=== PATIENT | male | born 2005 | race Hispanic/Latino ===

== ENCOUNTER 2024-11-06 15:29 | Emergency (ER) | payer OTHER, SELFPAY ==
[2024-11-06 16:41] LABS: SARS-CoV-2 Antigen CONTROL BLUE LINE VIS/BG OK; SARS-CoV-2 Antigen Rapid Res Negative (Negative)
[2024-11-06] MEDS ORDERED: KETOROLAC 30 MG/ML INJ ONE (18:00)
[2024-11-06] MEDS ORDERED: ONDANSETRON 4 MG/2 ML VIAL ONE (18:00)
[2024-11-06] MEDS ORDERED: LIDOCAINE VISCOUS 2% 10ML ORAL SOLN ONE (18:01)
[2024-11-06] MEDS ORDERED: NA CHLORIDE 0.9% 1,000 ML ONE (18:01)
[2024-11-06 18:11] LABS: Absolute Basophils 0.1 K/uL (0-0.5); Absolute Lymphocytes (CBC) 1.3 K/uL (0.7-4.9); Absolute Monocytes 1.4 K/uL (0.1-1.3); Absolute Neutrophil 9.7 K/uL (1.8-8.0); Basophils % 0.5 % (0-1.3); Eosinophils % 0.1 % (0-4.4); Hematocrit 44.4 % (39.6-49.0); Hemoglobin 14.7 g/dL (13.6-17.9); Lymphocytes % 10.1 % (15.3-44.8); MCH 28.9 pg (27.0-35.0); MCHC 33.2 g/dL (32.0-36.0); MCV 87.2 fL (80-100); MPV 8.5 fL (7.6-11.3); Monocytes % 11.2 % (3.3-12.3); Neutrophils % 78.1 % (41.7-73.7); Platelets 272 thou/uL (152-406); RBC Red Blood Cell Count 5.09 M/uL (4.33-5.43); Red Cell Distribution Width 13.2 % (12.1-15.2)
[2024-11-06 18:20] LABS: Anion Gap 8.7 mEq/L (5.0-15.0); Potassium 3.7 mEq/L (3.5-5.1)
--- NOTE | 2024-11-06 19:20 | RAD REPORT ---
EXAM: Soft Tissue Neck W/Contr INDICATION: SORE THROAT TECHNIQUE: Helical CT examination of the neck with IV contrast. Sagittal and coronal reformations wer e generated. This exam was performed according to our departmental dose-optimization program, which includes automated exposure control, adjustment of the mA and/or kV according to patient size and/or use of iterative reconstruction technique. COMPARISON: None. FINDINGS: Aerodigestive Tract Structures: Fluid attenuation at the left palatine tonsil and left parapharyngeal space without well-defined enhancing rim. There is minimal narrowing of the left posterior oropharynx. Lymph Nodes: Reactive size cervical chain lymph nodes. Parotid Glands: Normal Submandibular Glands: Normal Thyroid Gland: Subcentimeter thyroid nodules. Included Intracranial Structures: Normal Included Orbits: Normal Paranasal Sinuses: Predominantly clear Tympanomastoid Cavities: Normal Vascular Structures: Normal Osseous Structures: No acute osseous abnormality. Included Lung Apices: Normal IMPRESSION: Fluid attenuation in the region of the left palatine tonsil and left parapharyngeal space likely repr esenting phlegmon at this point without enhancing rim to confirm the presence of a peritonsillar abscess. Grossly patent airway.
[2024-11-06] MEDS ORDERED: CLINDAMYCIN 900MG/D5W 900 MG/50 ML IVPB IV ONE (19:46)
[2024-11-06] MEDS ORDERED: dexAMETHasone 10 MG/ML VIAL ONE (19:46)
--- NOTE | 2024-11-06 20:18 | ER ---
Nurse's Notes [facility] Name: Matias Chavez Age: 19 yrs Sex: Male : 2005 Arrival Date: 11/06/2024 Time: 15:29 Bed 13 Private MD: Diagnosis: Acute tonsillitis, unspecified Presentation: 11/06 15:50 Chief complaint: Sore throat and pain with swallowing x 2 days. Coronavirus screen: At this time, the client does not indicate any symptoms associated with coronavirus-19. Ebola Screen: No symptoms or risks identified at this time. Initial Sepsis Screen: Does the patient meet any 2 criteria? No. Patient's initial sepsis screen is negative. Does the patient have a suspected source of infection? No. Patient's initial sepsis screen is negative. Risk Assessment: Do you want to hurt yourself or someone else? Patient reports no desire to harm self or others. Onset of symptoms was November 05, 2024. 15:50 Method Of Arrival: Ambulatory hb 15:50 Acuity: ELIZABETH 3 hb Historical: - Allergies: 15:51 No Known Allergies; hb - Home Meds: 15:52 None [Active]; hb - PMHx: 15:52 None; hb - PSHx: 15:52 Appendectomy; hb - Immunization history:: Adult Immunizations up to date. - Infectious Disease History:: Denies. - Social history:: Smoking status: Patient denies any tobacco usage or history of. Screenin:16 [facility] ED Fall Risk Assessment (Adult) History of falling in the last 3 months, tm6 including since admission No falls in past 3 months (0 pts) Confusion or Disorientation No (0 pts) Intoxicated or Sedated No (0 pts) Impaired Gait No (0 pts) Mobility Assist Device Used No (0 pt) Altered Elimination No (0 pt) Score/Fall Risk Level 0 - 2 = Low Risk Oriented to surroundings, Maintained a safe environment, Educated pt \T\ family on fall prevention, incl call for assistance when getting out of bed. Abuse screen: Denies threats or abuse. Denies injuries from another. Nutritional screening: No deficits noted. Tuberculosis screening: No symptoms or risk factors identified. Assessment: 18:12 General: Appears in no apparent distress. Behavior is calm, cooperative. Pain: tm6 Complains of pain in throat Pain currently is 7 out of 10 on a pain scale. Neuro: Level of Consciousness is awake, alert, obeys commands, Oriented to person, place, time, situation. Cardiovascular: Patient's skin is warm and dry. Respiratory: Airway is patent Respiratory effort is even, unlabored, Respiratory pattern is regular, symmetrical. GI: Abdomen is flat, non-distended, Reports nausea. : No signs and/or symptoms were reported regarding the genitourinary system. EENT: Throat is reddened Reports pain when swallowing. Derm: No signs and/or symptoms reported regarding the dermatologic system. Musculoskeletal: No signs and/or symptoms reported regarding the musculoskeletal system. 19:16 Reassessment: Patient and/or family updated on plan of care and expected duration. Pain rg5 level reassessed. Patient is alert, oriented x 3, equal unlabored respirations, skin warm/dry/pink. Patient states feeling better. Patient states symptoms have improved. Cardiovascular: Denies chest pain, Patient's skin is warm and dry. Respiratory: Airway is patent Respiratory effort is even, unlabored, Respiratory pattern is regular, symmetrical, Breath sounds are clear. GI: Abdomen is flat, non-distended. : No signs and/or symptoms were reported regarding the genitourinary system. EENT: Reports pain when swallowing. Derm: Skin is intact, Skin is dry, Skin is normal, Skin temperature is warm. Musculoskeletal: Circulation, motion, and sensation intact. Range of motion: intact in all extremities. Vital Signs: 15:52 BP 138 / 87; Pulse 85; Resp 16; Temp 98.6(O); Pulse Ox 100% on R/A; Weight 84.82 kg; hb Height 6 ft. 0 in. ; Pain 7/10; 18:12 BP 124 / 86; Pulse 64; Pulse Ox 100% on R/A; MAP 91 mmHg; Pain 7/10; tm6 19:12 BP 128 / 77; Pulse 66; Resp 17; Temp 98.2(O); Pulse Ox 99% on R/A; Pain 3/10; rg5 20:15 BP 119 / 76; Pulse 69; Resp 17; Temp 98(O); Pulse Ox 99% on R/A; Pain 0/10; rg5 15:52 Body Mass Index 25.36 (84.82 kg, 182.88 cm) hb 15:52 Pain Scale: Adult hb 18:12 Pain Scale: Adult tm6 19:12 Pain Scale: Adult rg5 20:15 Pain Scale: Adult rg5 ED Course: 15:35 Patient arrived in ED. im 15:37 Magali Ryan PA-C is PHCP. sb4 15:37 To Kwong MD is Attending Physician. sb4 15:51 Triage completed. hb 15:53 Arm band placed on. hb 17:23 Dixon Arriola, RN is Primary Nurse. tm6 17:49 BMP Sent. cc6 17:49 CBC with Diff Sent. cc6 17:50 Initial lab(s) drawn, by me, sent to lab. Inserted saline lock: 20 gauge in right cc6 forearm, using aseptic technique. Blood collected. Flushed with 10 mL NS. 18:16 Patient has correct armband on for positive identification. Bed in low position. Call tm6 light in reach. Side rails up X 1. Provided Education on: use of call healy. Client placed on continuous cardiac and pulse oximetry monitoring. NIBP monitoring applied. Pulse ox on. NIBP on. Door closed. Noise minimized. Pillow given. 18:29 PHCP role handed off by Magali Ryan PA-C cp 18:29 To Martinez PA is PHCP. cp 19:06 Soft Tissue Neck W/Contr CT In Process Unspecified. EDMS 19:16 No provider procedures requiring assistance completed. rg5 20:17 Sandee Keith MD is Referral Physician. cp 20:32 IV discontinued, bleeding controlled, No redness/swelling at site. Pressure dressing rg5 applied. Administered Medications: 18:10 Drug: Ketorolac IVP 15 mg IVP once Route: IVP; Site: right antecubital; tm6 19:01 Follow up: Response: No adverse reaction tm6 18:10 Drug: Viscous Lidocaine Mucous Membrane Liquid (4 %) 5 ml Mucous Membrane once; swallow tm6 Route: Mucous Membrane; 19:01 Follow up: Response: No adverse reaction tm6 18:11 Drug: NS 0.9% IV 1000 ml IV at 1000 ml once; to be given as a bolus over 60 minutes tm6 Route: IV; Rate: 1000 ml; Site: right antecubital; 19:01 Follow up: Response: No adverse reaction; IV Status: Completed infusion; IV Intake: tm6 1000ml 18:11 Drug: Ondansetron IVP 4 mg IVP once; over 2 minutes Route: IVP; Site: right antecubital;tm6 19:01 Follow up: Response: No adverse reaction tm6 19:47 Drug: Dexamethasone IVP 10 mg IVP once; (not to exceed 40 mg) Route: IVP; Site: right rg5 antecubital; 20:15 Follow up: Response: No adverse reaction rg5 19:50 Drug: Clindamycin IVPB 900 mg IVPB once over 30 mins; (mix in 50 mL) Route: IVPB; rg5 Infused Over: 30 mins; Site: right antecubital; 20:20 Follow up: IV Status: Completed infusion; IV Intake: 50ml rg5 Medication: 19:16 VIS not applicable for this client. rg5 Intake: 19:01 IV: 1000ml; Total: 1000ml. tm6 20:20 IV: 50ml; Total: 1050ml. rg5 Outcome: 20:18 Discharge ordered by MD. cp 20:32 Discharged to home ambulatory, rg5 20:32 Condition: stable 20:32 Discharge instructions given to patient, Instructed on discharge instructions, follow up and referral plans. Demonstrated understanding of instructions, follow-up care, medications, Prescriptions given X 2, 20:32 Patient left the ED. rg5 Signatures: Dispatcher [employer] EDMS To Martinez PA PA cp Baxter, Heather, YENNY RAMON hb Magali Ryan PA-C PA-Fina sb4 Jessica Higuera Tawney, RN RN tm6 Sravan Serna RN RN rg5 Keesha Luna cc6 Corrections: (The following items were deleted from the chart) 15:52 15:50 Acuity: ELIZABETH 4 hb hb
--- NOTE | 2024-11-06 20:18 | EDPHYS ---
Physician Documentation [facility] Name: Matias Chavez Age: 19 yrs Sex: Male : 2005 Arrival Date: 11/06/2024 Time: 15:29 Bed 13 Private MD: ED Physician To Kwong HPI: 11/06 15:56 This 19 yrs old Male presents to ER via Ambulatory with complaints of Sore Throat. sb4 16:54 sore throat x 2 days, mainly on the left side. endorses pain with and difficulty sb4 swallowing. denies fever. reports 1 episode of emesis earlier today. reports prior episodes of tonsillitis and peritonsillar abscesses. Historical: - Allergies: 15:51 No Known Allergies; hb - Home Meds: 15:52 None [Active]; hb - PMHx: 15:52 None; hb - PSHx: 15:52 Appendectomy; hb - Immunization history:: Adult Immunizations up to date. - Infectious Disease History:: Denies. - Social history:: Smoking status: Patient denies any tobacco usage or history of. ROS: 16:54 Constitutional: Negative for fever, chills, and weight loss, sb4 16:54 ENT: Positive for sore throat, 16:54 All other systems are negative, Exam: 16:54 Head/Face: Normocephalic, atraumatic. Eyes: Extra-ocular motions intact. Periorbital sb4 areas with no swelling, redness, or edema. Cardiovascular: Regular rate and rhythm with a normal S1 and S2. Respiratory: No increased work of breathing, no retractions or nasal flaring. Abdomen/GI: Soft, non-tender, no distension. Skin: Warm, dry with normal turgor. Normal color with no rashes, no lesions, and no evidence of cellulitis. 16:54 Constitutional: The patient appears alert, awake, obviously ill, uncomfortable, 16:54 ENT: Posterior pharynx: Tonsils: bilaterally enlarged, with erythema, no exudate, no ulcerations, Uvula: edematous, erythema, deviates left, Vital Signs: 15:52 BP 138 / 87; Pulse 85; Resp 16; Temp 98.6(O); Pulse Ox 100% on R/A; Weight 84.82 kg; hb Height 6 ft. 0 in. ; Pain 7/10; 18:12 BP 124 / 86; Pulse 64; Pulse Ox 100% on R/A; MAP 91 mmHg; Pain 7/10; tm6 19:12 BP 128 / 77; Pulse 66; Resp 17; Temp 98.2(O); Pulse Ox 99% on R/A; Pain 3/10; rg5 20:15 BP 119 / 76; Pulse 69; Resp 17; Temp 98(O); Pulse Ox 99% on R/A; Pain 0/10; rg5 15:52 Body Mass Index 25.36 (84.82 kg, 182.88 cm) hb 15:52 Pain Scale: Adult hb 18:12 Pain Scale: Adult tm6 19:12 Pain Scale: Adult rg5 20:15 Pain Scale: Adult rg5 MDM: 15:48 Medical Screening Exam initiated sb4 16:56 Differential diagnosis: epiglottitis, group A strep tonsillitis, influenza, laryngitis, sb4 pharyngitis, tonsillitis, upper respiratory infection. Data reviewed: vital signs, nurses notes, lab test result(s), radiologic studies, and as a result, I will discharge patient. 17:47 Counseling: I had a detailed discussion with the patient and/or guardian regarding the sb4 historical points, exam findings, and any diagnostic results supporting the discharge/admit diagnosis, lab results, radiology results, the need for outpatient follow up, an ENT specialist, to return to the emergency department if symptoms worsen or persist or if there are any questions or concerns that arise at home. 11/06 15:53 Order name: CBC with Diff; Complete Time: 18:18 sb4 11/06 19:31 Interpretation: Reviewed. cp 11/06 15:53 Order name: BMP; Complete Time: 19:30 sb4 11/06 19:30 Interpretation: Reviewed. cp 11/06 15:53 Order name: Strep sb4 11/06 15:53 Order name: SARS RAPID; Complete Time: 16:42 sb4 11/06 15:53 Order name: Flu; Complete Time: 17:04 sb4 11/06 16:44 Order name: Throat Culture EDMS 11/06 15:53 Order name: Soft Tissue Neck W/Contr CT; Complete Time: 19:30 sb4 11/06 15:53 Order name: IV Start; Complete Time: 17:49 sb4 Administered Medications: 18:10 Drug: Ketorolac IVP 15 mg IVP once Route: IVP; Site: right antecubital; tm6 19:01 Follow up: Response: No adverse reaction tm6 18:10 Drug: Viscous Lidocaine Mucous Membrane Liquid (4 %) 5 ml Mucous Membrane once; swallow tm6 Route: Mucous Membrane; 19:01 Follow up: Response: No adverse reaction tm6 18:11 Drug: NS 0.9% IV 1000 ml IV at 1000 ml once; to be given as a bolus over 60 minutes tm6 Route: IV; Rate: 1000 ml; Site: right antecubital; 19:01 Follow up: Response: No adverse reaction; IV Status: Completed infusion; IV Intake: tm6 1000ml 18:11 Drug: Ondansetron IVP 4 mg IVP once; over 2 minutes Route: IVP; Site: right antecubital;tm6 19:01 Follow up: Response: No adverse reaction tm6 19:47 Drug: Dexamethasone IVP 10 mg IVP once; (not to exceed 40 mg) Route: IVP; Site: right rg5 antecubital; 20:15 Follow up: Response: No adverse reaction rg5 19:50 Drug: Clindamycin IVPB 900 mg IVPB once over 30 mins; (mix in 50 mL) Route: IVPB; rg5 Infused Over: 30 mins; Site: right antecubital; 20:20 Follow up: IV Status: Completed infusion; IV Intake: 50ml rg5 Disposition Summary: 11/06/24 20:18 Discharge Ordered Notes: Location: Home cp Problem: new cp Symptoms: have improved cp Condition: Stable cp Diagnosis - Acute tonsillitis, unspecified cp Followup: cp - With: Sandee Keith MD - When: 2 - 3 days - Reason: Worsening of condition Discharge Instructions: - Form - Excuse from Work, School, or Physical Activity sp - Form - Return To Work sp - Discharge Summary Sheet cp - Tonsillitis cp Forms: - Medication Reconciliation Form cp - Antibiotic Education cp - Prescription Opioid Use cp - Patient Portal Instructions cp - Leadership Thank You Letter cp - Work release form vc1 Prescriptions: - Lidocaine Viscous - take 5 milligram ORAL route every 4-6 hours As needed; 120 milliliter; Refills: cp 0, Product Selection Permitted - Clindamycin HCl 300 mg Oral Capsule - take 1 capsule ORAL route every 6 hours for 10 days; 40 capsule; Refills: 0, cp Product Selection Permitted - Ibuprofen 800 mg Oral Tablet - take 1 tablet ORAL route every 8 hours As needed take with food; 30 tablet; cp Refills: 0, Product Selection Permitted Addendum: 11/08/2024 14:58 Co-signature as Attending Physician, To Kwong MD I agree with the assessment and c cantu plan of care. Signatures: Dispatcher [employer] EDMS To Kwong MD MD cha Page, Corey, PA PA cp Baxter, Heather, RN RN Magali Sanchez PA-C PAJim sb4 Dixon Arriola RN RN tm6 Sravan Serna, RN RN rg5 Corrections: (The following items were deleted from the chart) 11/06 15:54 15:53 CBC+H.LAB.BRZ ordered. EDMS EDMS 15:54 15:53 BASIC METABOLIC PANEL+C.LAB.BRZ ordered. EDMS EDMS 15:54 15:53 Group A Streptococcus Rapid Sc+BA.LAB.BRZ ordered. EDMS EDMS 15:54 15:53 SARS-COV-2 Antigen Rapid+I.LAB.BRZ ordered. EDMS EDMS 15:54 15:53 Influenza Screen (A \T\ B)+BA.LAB.BRZ ordered. EDMS EDMS 15:54 15:54 Soft Tissue Neck W/Contr+CT.RAD.BRZ ordered. EDMS EDMS 16:55 16:54 sore throat x 2 days, mainly on the right side. endorses pain with and difficulty sb4 swallowing. denies fever. reports 1 episode of emesis earlier today. reports prior episodes of tonsillitis and peritonsillar abscesses. sb4
[2024-11-06 22:11] VITALS: O2SAT 99
[2024-11-06 22:13] VITALS: BP 119/76; TEMP 98
== END 2024-11-06 20:32 | disposition home or self-care (01) ==
LOC: ER 15:29
DX: J03.90 Acute tonsillitis, unspecified (principal); Z11.52 Encounter for screening for COVID-19
CPT/HCPCS: 96365; 96361; 87070; 85025; 80048; 36415; 87081; 87804 ×2; 70491; 96375; 99284; 87811; Q9967; J1100; J2405; J7030

== ENCOUNTER 2025-08-12 15:07 | Emergency (ER) | payer OTHER, SELFPAY ==
--- OUTSIDE RECORDS SUMMARY | 2025-08-12 15:12 | XMS REPORT | Continuity of Care Document ---
Author Name Unknown Address [address] [facility] [address] [place] [address] [facility] Address [address] [facility]. 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 Name Role Phone OTHER, ENTER NAME IN NOTES Primary Care Physicia n Unavailable Mely Lazar MD Attending Clinician Unavail able JJ BORJAS Attending Clinician Un available CHRISSY HERNANDEZ Attending Clinician Unavailab Rene Aden Attending Clinician Unavailable MARIN REED Attending Clinician Unavailable PRAVEEN POLK Attending Clinician Unavailable GAMA RODRÍGUEZ Attending Clinician Unavailab CARMELO Bazan Attending Clinician Unavailable JJ BORJAS Admitting Clinician Un available Physician, No Primary or Family Admitting Clinic bhargav Unavailable MARIN REED Admitting Clinician Unavailable PRAVEEN POLK Admitting Clinician Unavailable GAMA RODRÍGUEZ Admitting Clinician Unavailab le Payers Payer Name Policy Type Policy Number Effective Date Expirati on Date Source [id number] 1960 00:00:00 [facility] [id number] 2020 00:00:00 [facility] [id number] 2020 00:00:00 [facility] [id number] [facility] [id number] [facility] Problems Condition Name Condition Details Condition Category Status Onset Date Resolution Date Last Treatment Date Treating Clinician Comments Source Fracture of neck of metacarpal bone Fracture of neck of metacarpal bone Condition Active 8-24 00:00: [address] [facility] ([facility] V/SA) Sprain of ligament of thumb Sprain of ligament of thumb Problem Active 8-31 00:00: [address] [facility] (LUF/LI V/SA) Closed fracture of nasal bones Closed fracture of nasal bones Problem Active 3- 00:00: [address] [facility] (LUF/LI V/SA) Encounter for counseling Problem [facility] Pharyngiti s Problem [facility] Worries Problem [facility] Abdominal pain Problem [facility] [id number] Cough Problem [facility] [id number] Fever, unspecifie d Problem Active [facility] [id number] Headache, unspecifie d headache type Problem [facility] Child health medical examinatio n Encounter for routine child health examinatio n with abnormal findings Problem Active [facility] [id number] Obesity, unspecifie d Problem Active [facility] [id number] Other chronic pain Problem Active [facility] [id number] Aching headache Problem [facility] Vaccinatio n given Encounter for immunizati on Problem Active [facility] [id number] Seasonal allergic rhinitis, unspecifie d trigger Problem Active [facility] Attention deficit hyperactiv ity disorder ADHD (attention deficit hyperactiv ity disorder) Problem Active [facility] [id number] Contact dermatitis due to poison jorge Problem Active [facility] [id number] Attention deficit disorder (ADD) without hyperactiv ity Problem Active [facility] [id number] Mood disorder Problem Active [facility] 76293857 Body aches Problem Active [facility] Allergies, Adverse Reactions, Alerts Allergy Name Allergy Type Status Severity Reaction(s) Onset Date Inactive Date Treating Clinician Comments Source No Known Allergie s DA Active U 03-10 00:00: 00 [facility] Social History Social Habit Start Date Stop Date Quantity Comments Source Sex Assigned At [facility] History of Tobacco Use [facility] Smoking Status Start Date Stop Date Source Never Smoker [facility] Medications Ordered Medication Name Filled Medication Name Start Date Stop Date Current Medication? Ordering Clinician Indication Dosage Frequency Signature (SIG) Comments Components Source Dicyclomine Hcl (Dicyclomin e Hcl 20 Mg (Bentyl) *) 20 Mg TAB Dicyclomine Hcl (Dicyclomin e Hcl 20 Mg (Bentyl) *) 20 Mg TAB 05-27 13:26: 00 Yes [facility] Ketorolac Tromethamin e (Toradol 10 Mg*) 10 Mg TAB Ketorolac Tromethamin e (Toradol 10 Mg*) 10 Mg TAB 05-27 13:26: 00 Yes [facility] Fluticasone Propionate 50 MCG/ACT Fluticasone Propionate 50 MCG/ACT 01-25 00:00: 00 No 1{spray _in_eac h_nostr il} QD Fluticason e Propionate 50 MCG/ACT amoxicillin 500 mg capsule amoxicillin 500 mg capsule Yes 500mg 2xD [facility] (LUF/LI V/SA) No Known Medications No Known Medications No [facility] Prozac 20 MG Prozac 20 MG No 1{capsu le} QD Prozac 20 MG Vital Signs Vital Name Observation Time Observation Value Comments S ource Height 2024-06-07 18:00:00 182.252850 cm [facility] Weight 2024-06-07 18:00:00 89.905082 kg [facility] BMI (Body Mass Index) 2024-06-07 18:00:00 26.9 kg/m2 [facility] Height 2022-07-03 15:44:00 182.88 CM Weight 2022-07-03 15:44:00 114.3 KG Height 2022-06-12 21:38:00 182.88 CM Weight 2022-06-12 21:38:00 113.39 KG bmi 2021-11-01 15:00:00 33.11 kg/m2 [facility] 2021-11-01 15:00:00 98.4 [degF] [facility] 2021-03-14 14:30:00 71.5 [in_i] [facility] weight 2021-03-14 14:30:00 230 [lb_av] [facility] bmi 2021-03-14 14:30:00 31.63 kg/m2 [facility] 2021-01-25 16:30:00 71.5 [in_i] [facility] weight 2021-01-25 16:30:00 238 [lb_av] [facility] 2021-01-25 16:30:00 32.73 kg/m2 [facility] temperature 2021-01-25 16:30:00 97.6 [degF] [facility] 2020-07-10 21:16:00 180.34 CM Weight 2020-07-10 21:16:00 99.33 KG Height 2019-07-03 00:37:00 177.8 CM Weight 2019-07-03 00:37:00 83 KG Body Temperature 2022-07-03 17:20:00 98.3 [degF] [facility] (LUF/SIGIFREDO/SA) Pulse Rate 2022-07-03 17:20:00 74 /min [facility] ([facility]/SIGIFREDO/SA) Respiratory Rate 2022-07-03 17:20:00 17 /min [facility] (LUF/SIGIFREDO/SA) O2% BldC Oximetry 2022-07-03 17:20:00 99 % [facility] (LUF/SIGIFREDO/SA) BP Systolic 2022-07-03 17:20:00 128 mm[Hg] [facility] (LUF/SIGIFREDO/SA) BP Diastolic 2022-07-03 17:20:00 71 mm[Hg] [facility] (LUF/SIGIFREDO/SA) Height 2022-07-03 15:44:00 72 [in_i] [facility] (LUF/SIGIFREDO/SA) Weight 2022-07-03 15:44:00 114.3 kg [facility] (LUF/SIGIFREDO/SA) BMI (Body Mass Index) 2022-07-03 15:44:00 34.5 kg/m2 [facility] (LUF/SIGIFREDO/SA) Body Temperature 2022-06-12 21:38:00 98.4 [degF] [facility] (LUF/SIGIFREDO/SA) Pulse Rate 2022-06-12 21:38:00 89 /min [facility] (LUF/SIGIFREDO/SA) Respiratory Rate 2022-06-12 21:38:00 19 /min [facility] (LUF/SIGIFREDO/SA) O2% BldC Oximetry 2022-06-12 21:38:00 99 % [facility] (LUF/SIGIFREDO/SA) BP Systolic 2022-06-12 21:38:00 137 mm[Hg] [facility] (LUF/SIGIFREDO/SA) BP Diastolic 2022-06-12 21:38:00 88 mm[Hg] [facility] (LUF/SIGIFREDO/SA) Height 2022-06-12 21:38:00 72 [in_i] [facility] (LUF/SIGIFREDO/SA) Weight 2022-06-12 21:38:00 250 [lb_av] [facility] (LUF/SIGIFREDO/SA) BMI (Body Mass Index) 2022-06-12 21:38:00 34.2 kg/m2 [facility] (LUF/SIGIFREDO/SA) Pulse Rate 2020-07-10 23:31:00 86 /min [facility] S [facility] (LUF/SIGIFREDO/SA) O2% BldC Oximetry 2020-07-10 23:31:00 99 % [facility] (LUF/SIGIFREDO/SA) BP Systolic 2020-07-10 23:31:00 128 mm[Hg] [facility] (LUF/SIGIFREDO/SA) BP Diastolic 2020-07-10 23:31:00 66 mm[Hg] [facility] (LUF/SIGIFREDO/SA) Body Temperature 2020-07-10 21:16:00 98.2 [degF] [facility] (LUF/SIGIFREDO/SA) Respiratory Rate 2020-07-10 21:16:00 20 /min [facility] (LUF/SIGIFREDO/SA) Height 2020-07-10 21:16:00 71 [in_i] [facility] Brennan [facility] (LUF/SIGIFREDO/SA) Weight 2020-07-10 21:16:00 219 [lb_av] [facility] (LUF/SIGIFREDO/SA) BMI (Body Mass Index) 2020-07-10 21:16:00 30.6 kg/m2 [facility] (LUF/SIGIFREDO/SA) Body Temperature 2017-11-14 23:51:00 99.6 F [facility] (LUF/SIGIFREDO/SA) Respiratory Rate 2017-11-14 23:51:00 20 /min [facility] (LUF/SIGIFREDO/SA) O2% BldC Oximetry 2017-11-14 23:51:00 100 % [facility] (LUF/SIGIFREDO/SA) BP Systolic 2017-11-14 23:51:00 150 mm[Hg] [facility] (LUF/SIGIFREDO/SA) BP Diastolic 2017-11-14 23:51:00 87 mm[Hg] [facility] (LUF/SIGIFREDO/SA) Height 2017-11-14 23:51:00 70 in [facility] Brennan [facility] (LUF/SIGIFREDO/SA) Weight Measured 2017-11-14 23:51:00 198.41 lbs [facility] (LUF/SIGIFREDO/SA) BMI (Body Mass Index) 2017-11-14 23:51:00 28.7 [facility] (LUF/SIGIFREDO/SA) Encounters Start Date/Time End Date/Time Encounter Type Admission Type Attending [facility] Care Facility Care Department Encounter ID Source 2021-12-12 10:51:47 Outpatient LIVST LIVST [id number] [facility] 2021-12-05 14:09:10 Outpatient Mely Lazar MD [facility] [id number] [facility] 2021-12-05 13:02:33 Outpatient Mely Lazar MD [facility] [id number] [facility] 2021-12-05 12:53:44 Outpatient Mely Lazar MD [facility] [id number] [facility] 2021-12-05 12:42:31 Outpatient Mely Lazar MD [facility] [id number] [facility] 2021-12-05 12:41:57 Outpatient Mely Lazar MD [facility] [id number] [facility] 2024-06-07 21:03:00 2024-06-08 08:09:00 Emergency E JJ BORJAS [facility] [id number] [address] [place] [address] 2024-06-07 16:48:00 2024-06-08 01:15:00 Emergency ER CHRISSY HERNANDEZ [facility] [id number] [facility] 2024-06-07 16:48:00 2024-06-08 01:15:00 Departed Emergency Room [facility] [id number] 68 [facility] 2024-05-27 12:23:00 2024-05-27 13:32:00 Emergency ER CHRISSY HERNANDEZ [facility] [id number] [facility] 2024-05-27 12:23:00 2024-05-27 13:32:00 Departed Emergency Room [facility] [id number] 2023-03-10 11:47:00 2023-03-10 15:45:00 Emergency EM Rene Salazar [facility] [id number] [facility] 2022-07-03 15:33:00 2022-07-03 17:49:00 [facility] FX SHFT 5TH MC BN RH INT [place] 1 MRAIN REED [facility] N, [address], [place] [address] [facility] [id number] [facility] (LUF/LI V/SA) 2022-07-03 00:00:00 2022-07-03 00:00:00 Inpatient [facility], [address], [place] [address] [facility] [id number] [facility] (LUF/LI V/SA) 2022-07-03 00:00:00 2022-07-03 00:00:00 Inpatient [facility] N, [address], [place] [address] [facility] [id number] [facility] (LUF/LI V/SA) 2022-06-12 21:29:00 2022-06-12 21:59:00 ACUTE PHARYNGITI S UNSPECIFIE D 1 PRAVEEN POLK [facility] N, [address], [place] [address] [facility] [id number] [facility] (LUF/LI V/SA) 2022-06-12 00:00:00 2022-06-12 00:00:00 Inpatient [facility] N, [address], [place] [address] [facility] [id number] [facility] (LUF/LI V/SA) 2022-06-12 00:00:00 2022-06-12 00:00:00 Inpatient [facility] LARRY N, [address], [place] [address] [facility] [id number] [facility] ([facility]F/LI V/SA) 2021-11-01 00:00:00 2021-11-01 00:00:00 Low Complexity 20-29 minutes [facility] H[facility]ET [id number] [facility] 2021-03-14 00:00:00 2021-03-14 00:00:00 EST Expanded Problem Focused HCSET HCSET [id number] [facility] 2021-03-14 00:00:00 2021-03-14 00:00:00 (TEL) HCSET HCSET [id number] [facility] 2021-01-25 00:00:00 2021-01-25 00:00:00 EST Expanded Problem Focused HCSET HCSET [id number] [facility] 2021-01-25 00:00:00 2021-01-25 00:00:00 (TEL) HCSET HCSET [id number] [facility] 2020-07-10 20:41:00 2020-07-10 23:54:00 UNSPECIFIE D SPRAIN LT THUMB INITIAL 1 [facility] ANGELIQUE Rosey, [address], [place] [address] [facility] [id number] [facility] (LUF/LI V/SA) 2017-11-14 23:31:00 2017-11-15 03:29:00 PROC&TX NOT CARRIED OUT PT LEAVE KUMAR, CARMELO [facility] LARRY N, [address], [place] [address] [facility] [id number] [facility] (LUF/LI V/SA) Results Test Description Test Time Test Comments Results Result Co mments Source [facility] CtrSerum or plasma urea nitrogen measurement (mass/volume)2024-06-07 18:52:00* Test Item Value Reference Range Interpretation Comme nts Blood Urea Nitrogen (test co de = 3094-0) 14 [facility] [id number] 18:52:00* Test Item Value Reference Range Interpretation Comme nts Aspartate Amino Transf (AST/ SGOT) (test code = MUG7346) 14 [facility] CtrCreatinine [id number] 18:52:00* Test Item Value Reference Range Interpretation Comme nts Creatinine (test code = 764157172) 0.78 [facility] CtrEstimated glomerular filtration rate (GFR) [id number] 18:52:00* Test Item Value Reference Range Interpretation Comme [facility] Glomerular Filtration Rate C alc (test code = 180348014) > 60.00 [facility] CtrBUN/creatinine [id number] 18:52:00* Test Item Value Reference Range Interpretation Comme nts BUN/Creatinine Ratio (test c ode = 83800915) 17.9 [facility] potassium [id number] 18:52:00* Test Item Value Reference Range Interpretation Comme nts Potassium Level (test code = 2821-7) 3.6 [facility] [id number] 18:52:00* Test Item Value Reference Range Interpretation Comme nts Carbon Dioxide Level (test c ode = 22454993) 23 [facility] CtrAnion gap [id number] 18:52:00* Test Item Value Reference Range Interpretation Comme nts Anion Gap (test code = 63970509) 19.6 [facility] CtrCalcium [id number] 18:52:00* Test Item Value Reference Range Interpretation Comme nts Calcium Level (test code = 62784248) 10.2 [facility] CtrGlobulin [id number] 18:52:00* Test Item Value Reference Range Interpretation Comme nts Globulin (test code = 570590746) 4.1 [facility] CtrALT (SGPT) ser/[id number] 18:52:00* Test Item Value Reference Range Interpretation Comme nts Alanine Aminotransferase (AL T/SGPT) (test code = 1742-6) 21 [facility] CtrALP ser/[id number] 18:52:00* Test Item Value Reference Range Interpretation Comme nts Total Alkaline Phosphatase ( test code = 6768-6) 75 [facility] CtrBlood band neutrophils count (number/volume) 2024-06-07 18:30:00* Test Item Value Reference Range Interpretation Comme nts Neutrophils # (Auto) (test c ode = 17979-5) 15.59 [facility] CtrAbsolute lymphocyte [id number] 18:30:00* Test Item Value Reference Range Interpretation Comme nts Lymphocytes # (Auto) (test c ode = 91515-3) 1.54 [facility] CtrAbsolute basophil [id number] 18:30:00* Test Item Value Reference Range Interpretation Comme nts Basophils # (Auto) (test cod e = 75838878) 0.03 [facility] CtrAbsolute NRBC [id number] 18:30:00* Test Item Value Reference Range Interpretation Comme nts Nucleated Red Blood Cells # (test code = 803684767) 0 [facility] CtrAbsolute eosinophil [id number] 18:30:00* Test Item Value Reference Range Interpretation Comme nts Eosinophils # (Auto) (test c ode = DVC5972) 0.00 [facility] CtrRBC [id number] 18:30:00* Test Item Value Reference Range Interpretation Comme nts Red Blood Count (test code = 21551380) 5.19 [facility] ZnhLrbtlkdvis6972-95-89 18:30:00* Test Item Value Reference Range Interpretation Comme nts Hematocrit (test code = 24545288) 45.2 [facility] CtrMCV (mean corpuscular volume) determination 2024-06-07 18:30:00* Test Item Value Reference Range Interpretation Comme [facility] Mean Corpuscular Volume (ashwin t code = 16725-9) 87.1 [facility] CtrMean corpuscular hemoglobin (MCH) determination 2024-06-07 18:30:00* Test Item Value Reference Range Interpretation Comme [facility] Mean Corpuscular Hemoglobin (test code = 76436487) 28.5 [facility] CtrMean corpuscular hemoglobin concentration (MCHC) [id number] 18:30:00* Test Item Value Reference Range Interpretation Comme [facility] Mean Corpuscular Hemoglobin Concent (test code = 92350399) 32.7 [facility] CtrRBC distribution width coefficient of variation 2024-06-07 18:30:00* Test Item Value Reference Range Interpretation Comme [facility] Red Cell Distribution Width (test code = 23640613) 12.6 [facility] CtrPlatelet [id number] 18:30:00* Test Item Value Reference Range Interpretation Comme [facility] Platelet Count (test code = 60737061) 283 [facility] CtrMean platelet [id number] 18:30:00* Test Item Value Reference Range Interpretation Comme [facility] Mean Platelet Volume (test c ode = 30005217) 9.4 [facility] CtrNeutrophils seg % [id number] 18:30:00* Test Item Value Reference Range Interpretation Comme [facility] Neutrophils (%) (Auto) (test code = 77707-9) 80.5 [facility] CtrAbsolute immature granulocyte [id number] 18:30:00* Test Item Value Reference Range Interpretation Comme [facility] Absolute Immature Granulocyt e (auto (test code = 46444-8) 0.08 [facility] CtrColor of Urine by [id number] 13:48:00* Test Item Value Reference Range Interpretation Comme [facility] Urine Color (test code = 57216-2) Yellow [facility] CtrAppearance of [id number] 13:48:00* Test Item Value Reference Range Interpretation Comme [facility] Urine Appearance (test code = 5767-9) Clear [facility] CtrUrine glucose [id number] 13:48:00* Test Item Value Reference Range Interpretation Comme [facility] Urine Glucose (UA) (test cod e = 2349-9) Negative [facility] CtrBilirubin [id number] 13:48:00* Test Item Value Reference Range Interpretation Comme [facility] Urine Bilirubin (test code = 969408499) Negative [facility] CtrKetones [id number] 13:48:00* Test Item Value Reference Range Interpretation Comme nts Urine Ketones (test code = 63493470) Negative [facility] CtrSpecific gravity of Urine by Automated test strip 2024-05-27 13:48:00* Test Item Value Reference Range Interpretation Comme nts Urine Specific [place] (test code = 08434-8) 1.027 [facility] CtrUrine blood [id number] 13:48:00* Test Item Value Reference Range Interpretation Comme nts Urine Blood (test code = 32613-6) Negative [facility] CtrpH [id number] 13:48:00* Test Item Value Reference Range Interpretation Comme [facility] Urine pH (test code = 2756-5) 8.500 [facility] CtrProtein [id number] 13:48:00* Test Item Value Reference Range Interpretation Comme [facility] Urine Protein (test code = 65208362) Negative [facility] CtrUrobilinogen, urine, [id number] 13:48:00* Test Item Value Reference Range Interpretation Comme [facility] Urine Urobilinogen (test cod e = 495418196) 0.2 [facility] CtrUrine nitrate vkrahlkjg2348-87-25 13:48:00* Test Item Value Reference Range Interpretation Comme nts Urine Nitrate (test code = 15500-0) Negative [facility] CtrUrine leukocyte esterase ldrurtnus2295-31-59 13:48:00* Test Item Value Reference Range Interpretation Comme [facility] Urine Leukocyte Esterase (te st code = 435022702) Negative [facility] CtrRBC count ur [id number] 13:48:00* Test Item Value Reference Range Interpretation Comme nts Urine RBC (test code = 798-9) 0-2 [facility] CtrUrine examination for white blood cells (WBC) 2024-05-27 13:48:00* Test Item Value Reference Range Interpretation Comme nts Urine WBC (test code = 388713133) 0-2 [facility] CtrAutomated epithelial cells count in urine sediment (number/area)2024-05-27 13:48:00* Test Item Value Reference Range Interpretation Comme nts Urine Epithelial Cells (test code = 92253-0) 0-2 [facility] CtrBacteria detection in urine sediment by light xdvabopzcn9184-32-48 13:48:00* Test Item Value Reference Range Interpretation Comme nts Urine Bacteria (test code = 47456-5) None Seen [facility] CtrUrine casts detection by automated method 2024-05-27 13:48:00* Test Item Value Reference Range Interpretation Comme nts Urine Casts (test code = 76849-2) 0-2 [facility] WcrLzbwdg5350-39-09 12:55:00* Test Item Value Reference Range Interpretation Comme nts Lipase (test code = 35807760) 21 [facility]- CT ABD PELVIS W/[id number] 14:36:00 [facility] [place]EN[place]: GIRMA GIBSON : 2005 Sex: M Patient Name: GIRMA GIBSON Unit No: [id number] EXAMS: CPT CODE: [id number] CT ABD PELVIS W/CONT 49904 EXAMINATION: - CT ABD PELVIS W/CONT CLINICAL INDICATION: Male, 18 years old with lower abd pain TECHNIQUE: Thin section axial post-contrast contiguous images were obtained through the abdomen and pelvis followed by coronal and sagittal multiplanar reformations. One or more of the following dose reduction techniques were used: Automated exposure control, adjustment of the mA and/or kV according to patient size, and/or iterative reconstruction. Unless otherwise specified, incidental findings do not require dedicated imaging follow-up. COMPARISON: None Location: T 18 FINDINGS: Lower Chest: Visualized lung bases are clear. Heart is normal in size. No pericardial or pleural effusion. Liver: Liver measures 19 cm in length. No focal lesions. Bile ducts are of normal caliber. Gallbladder: Subtle densities in the gallbladder could be related to gallstones. Pancreas: Normal appearance without focal lesion. Spleen: Normal in size and contour. Adrenals: Normal configuration. Kidneys and ureters: Normal size and contour. No hydronephrosis. Bladder/Reproductive Organs: Normal in appearance. Unremarkable reproductive organs Bowel: Loops of bowel without wall thickening or obstruction. Moderate fecalmaterial in the cecum, ascending and transverse colon and rectum. No small bowel obstruction. Appendix is surgically absent. No free air, free fluid, or fluid collection. Lymph nodes: There are no pathologically enlarged abdominopelvic lymph nodes. Retroperitoneum: No mass or hemorrhage. Abdominal aorta and inferior vena cava are normal in course and caliber. Abdominal wall: No hernia or mass. [facility] Jacquelyn NAME: ARTHUR[address] PHYS: William Quiroz [place] [address] : 2005 AGE: 18 SEX: M LOC: B.Secured Mail PHONE #: [phone] EXAM DATE: 03/10/2023 STATUS: REG ER FAX #: [phone] RAD #: D/C DT PAGE 1 Signed Report (CONTINUED) Patient Name: GIRMA GIBSON Unit No: [id number] EXAMS: CPT CODE: [id number] CT ABD PELVIS W/CONT 87747(Continued) Bones: No acute abnormality or suspicious bony lesion. IMPRESSION: Possible gallstones.Correlation with gallbladder ultrasound recommended. Mild hepatomegaly. Constipation. at 1436 Reported and signed by: Sandra Carmona MD CC: William Oates Dictated Date/Time: 03/10/2023 (1436) Technologist: MELISA NEWELL CTDI: DLP: Trnscrpt: 03/10/2023 (1436) Mary.LJ12 [facility] Jacquelyn NAME: ARTHUR[address] PHYS: [place] [address] : 2005 AGE: 18 SEX: M LOC: B.Secured Mail PHONE #: [phone] EXAM DATE: 03/10/2023 STATUS: REG ER FAX #: [phone] RAD #: D/C DT PAGE 2 Signed Report Patient Name: GIRMA GIBSON Unit No: [id number] EXAMS: CPT CODE: [id number] CT ABD PELVIS W/CONT 71045 (Continued) Orig Print D/T: S: 03/10/2023 (1439) [facility] NAME: GIRMA GIBSON [address] [place] [address] Blvd PHYS: HUVAD - Lashon,William DIANA [place], [place] [address] : 2005 AGE: 18 SEX: M LOC: JACKELYN PHONE #: [phone] EXAM DATE: 03/10/2023 STATUS: REG ER FAX #: [phone] RAD #: D/C DT PAGE 3 Signed ReportCOMPREHENSIVE METABOLIC [id number] 14:12:00* Test Item Value Reference Range Interpretation Comme nts SODIUM (test code = NA) 138.0 mmol/L 133-144 N POTASSIUM (test code = K) 4.0 mmol/L 3.5-5.1 N CHLORIDE (test code = CL) 107 mmol/L 95-105 H CARBON DIOXIDE (test code = CO2) 28 mmol/L 21-32 N ANION GAP (test code = GAP) 3.0 GAP calc 4.0-15.0 L GLUCOSE (test code = GLU) 108 MG/DL 70-110 N BLOOD UREA NITROGEN (test code = BUN) 14 MG/DL 7-18 N GLOMERULAR FILTRATION RATE (test code = GFR) 111 estGFR >60 The Glomerular Filtration Rate is a calculated parameterbased on serum Creatinine, patient age and sex. GFR valuesless than 60 mL/min/1.73 square meters are indicative ofChronic Kidney Disease. Values less than 15 mL/min/1.73square meters indicate Kidney failure. The calculation forGFR is based on the CKD-EPI (2020) calculation. This formulais race indifferent and is the recommended formula for GFRby the National Kidney Foundation for Adults.The GFR will not calculate if the sex is unknown or if thepatient's age is <18 years. CREATININE (test code = CREAT) 1.00 MG/DL 0.55-1.30 N Results may be depressed if patient is takingN-Acetylcystein e (NAC) and Metamizole (Dipyrone). TOTAL PROTEIN (test code = PROT) 7.9 G/DL 6.4-8.2 N ALBUMIN (test code = ALB) 4.3 G/DL 3.4-5.0 N ALBUMIN/GLOBULIN RATIO (test code = A/G) 1.2 RATIO 1.2-2.2 N CALCIUM (test code = CA) 9.5 MG/DL 8.5-10.1 N BILIRUBIN TOTAL (test code = BILT) 0.61 MG/DL 0.00-1.00 N BILIRUBIN DIRECT (test code = BILD) 0.14 MG/DL 0.00-0.30 N BILIRUBIN INDIRECT (test code = BILIND) 0.47 MG/DL 0.2-1.3 N SGOT/AST (test code = AST) 11 Unit/L 15-37 L SGPT/ALT (test code = ALT) 30 Unit/L 12-78 N ALKALINE PHOSPHATASE TOTAL (test code = ALKP) 64 Unit/L 45-117 N INDEX HEMOLYSIS (test code = HEMINDEX) 1 NORMAL <10 MG Index/DL See_Comment [Automated message] The system which generated this result transmitted reference range: 1 NORMAL. The reference range was not used to interpret this result as normal/abnormal. INDEX ICTERIC (test code = ICTINDEX) 1 NORMAL <2 MG Index/DL See_Comment [Automated message] The system which generated this result transmitted reference range: 1 NORMAL. The reference range was not used to interpret this result as normal/abnormal. INDEX LIPEMIA (test code = LIPINDEX) 1 NORMAL <50 MG Index/DL See_Comment [Automated message] The system which generated this result transmitted reference range: 1 NORMAL. The reference range was not used to interpret this result as normal/abnormal. CBC W/AUTO [id number] 12:52:00* Test Item Value Reference Range Interpretation Comme nts WHITE BLOOD CELL (test code = WBC) 8.6 K/mm3 4.1-12.1 N RED BLOOD CELL (test code = RBC) 5.22 M/mm3 3.8-5.5 N HEMOGLOBIN (test code = HGB) 14.9 G/DL 10.6-15.8 N HEMATOCRIT (test code = HCT) 46.1 % 31.8-47.4 N MEAN CELL VOLUME (test code = MCV) 88.3 fL 80.1-101.1 N MEAN CELL HGB (test code = MCH) 28.5 pg 25.3-35.3 N MEAN CELL HGB CONCETRATION ( test code = MCHC) 32.3 G/DL 32.7-35.1 L RED CELL DISTRIBUTION WIDTH (test code = RDW) 12.6 % 12.2-16.4 N RED CELL DISTRIBUTION WIDTH (test code = RDW-SD) 41.2 fL 35.1-43.9 N PLATELET COUNT (test code = PLT) 326 K/mm3 155-337 N MEAN PLATELET VOLUME (test c ode = MPV) 10.0 fL 7.6-10.4 N GRANULOCYTE % (test code = GR%) 66.4 % 37.8-82.6 N IMMATURE GRANULOCYTE % (test code = IG%) 0.3 % 0.0-2.0 N LYMPHOCYTE % (test code = LY%) 18.0 % 14.1-45.4 N MONOCYTE % (test code = MO%) 12.5 % 2.5-11.7 H EOSINOPHIL % (test code = EO%) 2.3 % 0.0-6.2 N BASOPHIL % (test code = BA%) 0.5 % 0.0-2.6 N NUCLEATED RBC % (test code = NRBC%) 0.0 /100WBC% 0.0-1.0 N GRANULOCYTE # (test code = GR#) 5.73 k/mm3 2.0-13.7 N IMMATURE GRANULOCYTE # (test code = IG#) 0.03 K/mm3 0.00-0.03 N LYMPHOCYTE # (test code = LY#) 1.55 K/mm3 0.6-3.8 N MONOCYTE # (test code = MO#) 1.08 K/mm3 0.11-0.59 H EOSINOPHIL # (test code = EO#) 0.20 K/mm3 0.0-0.4 N BASOPHIL # (test code = BA#) 0.04 K/mm3 0.0-0.1 N NUCLEATED RBC # (test code = NRBC#) 0.00 K/mm3 0.00-0.05 N URINALYSIS [id number] 12:51:00* Test Item Value Reference Range Interpretation Comme nts UA COLOR (test code = COLU) LIGHT-YELLOW DESCRIPT YELLOW UA APPEARANCE (test code = APPU) CLEAR DESCRIPT CLEAR UA GLUCOSE DIPSTICK (test code = DGLUU) NORMAL (0) mg/dL See_Comment [Automated message] The system which generated this result transmitted reference range: 0 (NORMAL). The reference range was not used to interpret this result as normal/abnormal. UA BILIRUBIN DIPSTICK (test code = BILU) NEGATIVE (0.0) mg/dL See_Comment [Automated message] The system which generated this result transmitted reference range: (NEG) 0. The reference range was not used to interpret this result as normal/abnormal. UA KETONE DIPSTICK (test code = KETU) NEGATIVE (0) mg/dL See_Comment [Automated message] The system which generated this result transmitted reference range: (NEG) 0. The reference range was not used to interpret this result as normal/abnormal. UA SPECIFIC GRAVITY (test code = SGU) 1.027 SG 1.001-1.035 UA BLOOD DIPSTICK (test code = BONIFACIO) NEGATIVE (0.00) mg/dL See_Comment [Automated message] The system which generated this result transmitted reference range: 0 (NEG). The reference range was not used to interpret this result as normal/abnormal. UA PH DIPSTICK (test code = RED) 5.5 pH UNITS 4.6-8.0 UA PROTEIN DIPSTICK (test code = PROU) 10 (TRACE) mg/dL See_Comment A [Automated message] The system which generated this result transmitted reference range: <30 (1+). The reference range was not used to interpret this result as normal/abnormal. UA UROBILINIOGEN DIPSTICK (test code = URO) NORMAL (0) mg/Dl See_Comment [Automated message] The system which generated this result transmitted reference range: <2.0 (1+). The reference range was not used to interpret this result as normal/abnormal. UA NITRITE DIPSTICK (test code = BRISEYDA) NEGATIVE (0) SCREEN NEG UA LEUKOCYTE ESTERASE DIPSTICK (test code = LEUU) NEGATIVE (0) Leuk/mcL See_Comment [Automated message] The system which generated this result transmitted reference range: (NEG) 0. The reference range was not used to interpret this result as normal/abnormal. UA WBC (test code = WBCU) 0-3 #WBC/HPF 0-3 UA RBC (test code = RBCU) 0-3 #RBC/HPF 0-3 UA BACTERIA (test code = BACU) TRACE >0 /HPF NONE-FEW UA MUCUS (test code = MUCU) RARE /LPF NONE XR HAND MIN [id number] 16:44:42 [facility] ([facility])Name: GIRMA GIBSON : 2005 Sex: MRight hand 3 views:History: Right hand painPA, oblique and lateral views were obtained. There is a transverse fracture ofthe midshaft fifth metacarpal. [place] dorsal and slight medial angulation is notedat the fracture site with no displacement identified. No other fractures arenoted. The jointspaces are preserved. Medial soft tissue swelling is noted.Impression: Fifth metacarpal fracture asdescribed.This final report was electronically signed by Dr Braulio Sierra MD :39 PMDicta eligio By: BRAULIO SIERRADate: 07/03/2022 16:39STLMLXR HAND MIN [id number] 22:59:21XR LEFT HAND MIN 3VWS - 3 viewsHISTORY: Pain. [id number]: Thumb injuryCOMPARISON: None available.FINDINGS:Bones:No acute displaced fracture.Osseous alignment is within normal limits.Joints:The joint spaces are well-maintained.Soft tissues:The soft tissues appear unremarkable.IMPRESSION:No acute radiographic abnormality.This final report was electronically signed by Dr Thom Elaine MD 8/31/575494:53 PMDictated By: Moises ELAINEte: 07/10/2020 22:53[facility] DIVIDEXR CHEST AP/PA 1 [id number] 07:02:24EXAMINATION: XR CHEST AP/PA 1 VIEWINDICATION: FeverCOMPARISON: NoneFINDINGS: AP viewTUBES and LINES: None.LUNGS: Lungs are well inflated. Lungs are clear. There is no evidence ofpneumonia or pulmonary edema.PLEURA: No pleural effusion or pneumothorax.HEART AND MEDIASTINUM: The cardiomediastinal silhouette is unremarkable.BONES AND SOFT TISSUES: No acute osseous lesion. Soft tissues areunremarkable.UPPER ABDOMEN: No free air under the diaphragm.IMPRESSION:No acute abnormalities.This final report was electronically signed by Dr Peyman Jones DO 07/03/20196:56 AMDictated By: PEYMAN JONESDate: 07/03/2019 06:56[facility] WITH AUTO [id number] 05:19:00* Test Item Value Reference Range Interpretation Comme nts WBC (test code = WBC) 23.52 10\\S\\3/ul 4.80-10.80 H RBC (test code = RBC) 4.72 10\\S\\6/ul 4.70-6.10 Hemoglobin (test code = HGB) 13.6 gm/dl 14.0-18.0 L Hematocrit (test code = HCT) 40.2 % 42.0-50.0 L MCV (test code = MCV) 85.2 fL 80.0-94.0 MCH (test code = MCH) 28.8 pg 27.0-31.0 MCHC (test code = MCHC) 33.8 gm/dl 33.0-37.0 RDW (test code = RDWVC) 12.6 % 11.5-14.5 Platelet (test code = PLT) 358 10\\S\\3/ul 130-400 MPV (test code = MPV) 9.1 fL 7.4-10.4 A "NOT MEASURED" RESULTS ARE DISPLAYED WHEN THE INSTRUMENT HAS A SUPPRESSED OR UNREPORTABLE RESULT. THIS WILL MOST OFTEN HAPPEN WITH THE MPV WHEN THERE IS AN ABNORMAL PLATELET DISTRIBUTION DUE TO A CRITICAL LOW VALUE OR PLATELET CLUMPING. THE RDW MAY BE SUPPRESSED IF THERE ARE MULTIPLE PEAKS PRESENT ON THE RBC HISTOGRAM. IN THIS CASE, A MANUAL REVIEW OF THE SLIDE WILL BE PERFORMED, AND RBC MORPHOLOGY WILL BE NOTED ON THE REPORT. NE% (test code = NE) 74.6 % 42.0-75.0 LY% (test code = LY) 7.9 % 13.0-42.0 L MO% (test code = MO) 16.0 % 4.0-14.0 H EO% (test code = EO) 0.1 % 1.0-5.0 L BA% (test code = BA) 0.5 % 0.0-3.0 IG% (test code = IG%) 0.9 % 0.0-0.4 H Bands (test code = BANDM) 1 % 0-2 No previous valu e was reported. A value of 1 was entered by [employer] on 07/03/2019 05:19 Neutrophils (test code = NEUTR) 75 10\\S\\3/ul 42-75 No previous valu e was reported. A value of 75 was entered by [id number] on 07/03/2019 05:19 Lymphocytes (test code = LYMPH) 11 % 13-42 L No previous valu e was reported. A value of 11 was entered by [id number] on 07/03/2019 05:19 Monocytes (test code = MONOS) 13 % 4-14 No previous valu e was reported. A value of 13 was entered by [id number] on 07/03/2019 05:19 [facility] ABDOMEN/PELVIS W/[id number] 04:58:33NPO 4 hours. Do not withhold medsEXAM: CT Abdomen and Pelvis WITH contrastINDICATION: Abdominal pain, feverCOMPARISON: None.TECHNIQUE: Abdomen and pelvis were scanned utilizing a multidetector helicalscanner from the lung base to the pubic symphysis after administration of IVcontrast. Coronal and sagittal reformations were obtained. Routine protocol wasperformed. Scan was performed when during portal venous phase.IV CONTRAST: 100 mL of Isovue 300ORAL CONTRAST: NoneCOMPLICATIONS: NoneRADIATION DOSE:Total DLP: 523 mGy*cmEstimated effective dose: (DLP x 0.015 x size factor) mSvCTDIvol has been reviewed. It is below the limits set by the RadiationProtocol Committee (RPC).Dose modulation, iterative reconstruction, and/or weightbased adjustmentsof the mA/kV was utilized to reduce the radiation dose to as low as reasonablyachievable.FINDINGS:LINES and TUBES: None.LOWER THORAX: UnremarkableHEPATOBILIARY: No focal hepatic lesions. No biliary ductal dilation.GALLBLADDER: No radio-opaque stones or sludge. No wall thickening.SPLEEN: No splenomegaly.PANCREAS: No focal masses or ductal dilatation.ADRENALS: No adrenal nodulesKIDNEYS/URETERS: Kidneys enhance symmetrically. No hydronephrosis. No cystic orsolid mass lesions. No stones.GI TRACT: The cecal and distal ileal scott are thickened. The appendicealtip is dilated with wall thickening and the appendiceal body is no longerdiscernible due to the large right lower quadrant abdominal abscess. Twoadditional 0.9 cm appendicoliths remain within the distal aspect of theperforated appendix. No bowel obstruction.PELVIC ORGANS/BLADDER: Unremarkable.LYMPH NODES: Prominent ileocolic mesenteric lymph nodes.VESSELS: Unremarkable.PERITONEUM / RETROPERITONEUM: A 7.2 x 4.7 x 5.2 cm gas and fluid containingcollection in the right lower peritoneal cavity with significant surrounding fatstranding. Trace fluid along the right inferior hepatic marginBONES: Unremarkable.SOFT TISSUES: Unremarkable.IMPRESSION:Acute ruptured appendicitis with a 7.2 cm abscess in the right lower peritonealcavity. Also note there is a 1.4 cm appendicolith within the abscess. Twoadditional 0.9 cm appendicoliths remain within the distal aspect of theperforated appendix. Reactive inflammatory of the cecum and distal ileum.Findings discussed with Dr. Rodríguez at 4:35 AM on July 03, 2019 by Roberta via telephone.This final report was electronically signed by Dr Peyman Jones DO 07/03/20194:52AMDictated By: PEYMAN JONESDate: 07/03/2019 04:52[facility]INGSTONURINALYSIS WITH [id number] 04:01:00* Test Item Value Reference Range Interpretation Comme nts Color (test code = UCOLR) Yellow Clarity (test code = UCLAR) Clear Glucose (test code = UGLUC) NEGATIVE NEGATIVE N Bilirubin (test code = UBILI) NEGATIVE NEGATIVE N Ketones (test code = UKET) NEGATIVE NEGATIVE N Specific [place] (test code = USPGR) <1.005 1.005-1.030 A Blood (test code = UBLD) Trace-Intact NEGATIVE A PH (test code = UPH) 6.0 4.5-8.0 A Protein (test code = UPROT) NEGATIVE NEGATIVE N Urobilinogen (test code = U UROB) 0.2 >0.2 N Nitrite (test code = UNITR) NEGATIVE NEGATIVE N Leukocyte Esterase (test cod e = ULEUK) NEGATIVE NEGATIVE N WBC (test code = WBCUR) None Seen 0-5 A RBC (test code = RBCUR) 0-1 0-5 A Epithial Cells (test code = U EPI) None Seen 0-10 A Bacteria (test code = UBACT) None Seen None Seen,Trace N [id number] 02:07:00* Test Item Value Reference Range Interpretation Comme nts Glucose (test code = GLU) 105 mg/dl 75-110 BUN (test code = BUN) 12.0 mg/dl 6.0-17.0 Creatinine (test code = CREA) 0.9 mg/dl 0.4-1.2 Sodium (test code = NA) 131 mmol/l 137-145 L Potassium (test code = K) 3.6 mmol/l 3.5-5.0 Chloride (test code = CL) 94 mmol/l 98-107 L CO2 (test code = CO2) 26 mmol/l 22-30 Calcium (test code = CALC) 9.0 mg/dl 8.4-10.2 T Protein (test code = TP) 7.9 gm/dl 5.1-8.7 Albumin (test code = ALB) 3.0 gm/dl 3.5-4.6 L A/G Ratio (test code = AGRAT) 0.6 % 1.1-2.2 L AST (SGOT) (test code = AST) 9 U/L 11-36 L ALT (SGPT) (test code = ALT) 13 U/L 11-40 Alkaline Phos (test code = ALKP) 102 U/L 47-114 Total Bilirubin (test code = TBIL) 0.5 mg/dl 0.2-1.2 Globulin (test code = GLOBU) 4.9 gm/dl 2.3-3.5 H Calcium, Corrected (test code = CALCCORR) 9.8 mg/dl 8.4-10.2 Various formulas exist for corrected serum calcium results, each yielding different values. This corrected result was based on the formula: Corrected Calcium = SerumCalcium + [0.8 * ( 4 - SerumAlbumin)] EGFR if (test code = EGFRAA) n/a mL/min/1.73m\\ S\\2 EGFR if Non- (test code = EGFRNA) n/a mL/min/1.73m\\ S\\2 Estimated Glomerular Filtration Rate (eGFR) Reference Intervals Decision Points for 18 years and older and average body mass: >= 60 Does not exclude kidney disease. 30 - 59 Suggests moderate chronic kidney disease and indicates the need for further investigation including assessment of proteinuria and cardiovascular factors. < 30 Usually indicates a need for referral for assessment and management of chronic kidney failure. [facility] Strep ScreenRapid Strep Screen Notes <thead> Date/Time Note Provider Source [facility] [id number] 02:52:56 [facility] [id number] 02:52:56 Future Tests Future scheduled test information is unavailable Pending Tests Pending diagnostic test information is unavailable Future Visits Future appointment information is unavailable Referrals to Other Providers <thead> Reason for Referral Referral Start Date Provider Provider Contact Information Provider Address ENTER NAME IN NOTES OTHER ENTER NAME IN NOTES OTHER Future Procedures <thead> Procedure Name Ordered Date Scheduled Date NPO except Meds May 27, 2024 12:24pm May 12:23pm Insert Peripheral IV Access May 27, 2024 12:2 4pm May 27, 2024 12:23pm Cardiac, BP, Pulse Ox Monitor May 27, 2024 12 :24pm May 27, 2024 12:23pm Remove Clothing/Place in Gown May 27, 2024 12 :24pm May 27, 2024 12:23pm VS - Adult May 27, 2024 12:24pm May 12:23pm Insert Peripheral IV Access June 07, 2024 6:05 pm June 07, 2024 Future Medications Future medication information is unavailable Patient Instructions <tbody> Abdominal Pain, Adult, Easy- to-Read [facility] [id number] 15:34:00 [facility] ([facility]) EMERGENCY PROVIDER REPORT REPORT#:[id number] REPORT STATUS: Signed DATE:03/10/23 TIME: 1533 PATIENT: GIRMA GIBSON UNIT #: [id number] ROOM/BED: AGE: 18 SEX: M PCP PHYS: No Primary or Family Physician SERVICE AUTHOR: William Oates * ALL edits or amendments must be made on the electronic/computer document * William Oates 03/10/23 1534: HPI-General Illness Free Text HPI Notes Free Text HPI Notes Patient is a 18-year-old male presents with lower abdominal pain, states started this morning. Reports he had an appendectomy that was ruptured and he had a drain tube that was in place a few years prior. States that the pain is around the site that the drain was at. Denies redness, swelling, fever, chills, nausea , vomiting, chest pain, shortness of breath. General Initial Greet Date/Time 03/10/23 1147 Presentation Chief Complaint Abdominal pain Review of Systems ROS Statements All systems rev neg except as marked. Past Medical History - Adult Stated Complaint PAIN AT OLD SURGICAL SITE - APPENDECTOMY Allergies Coded Allergies: No Known Allergies (03/10/23) Physical Exam Vital Signs Vital Signs First Documented: Result Date Time Pulse Ox 98 03/10 1208 B/P 135/84 03/10 1208 B/P Mean 101 03/10 1208 O2 Delivery Room air 03/10 1208 Temp 36.9 03/10 1208 Pulse 69 03/10 1208 Resp 18 03/10 1208 Last Documented: Result Date Time Pulse Ox 99 03/10 1545 B/P 145/78 03/10 1545 B/P Mean 100 03/10 1545 O2 Delivery Room air 03/10 1545 Temp 36.8 03/10 1545 Pulse 64 03/10 1545 Resp 18 03/10 1545 Review of Vital Signs Reviewed Free Text PE Notes Free Text PE Notes General/Const: Awake, Alert, No acute distress, Well appearing, Well developed, Well hydrated, Well nourished, Cooperative, Not toxic appearing Head: Atraumatic, Normocephalic Neck: Atraumatic, Supple Resp/Chest: Breath sounds NL, Breath sounds = bilat, No respiratory distress, No rales, No rhonchi, No wheezing, No retractions, No stridor, No chest tenderness, No chest wall deformity, No crepitus Cardiovascular: Heart rate NL, Regular rhythm, Heart sounds NL, No gallop, No murmurs, No rubs, Cap refill not delayed, Peripheral circulation NL, Pulses = bilaterally, Abdomen/GI: Atraumatic, Soft, mild tenderness to left upper and left lower abdomen, McBurney's non-tender, No guarding, No rebound, BS normoactive, No distention, No hernia, No palpable mass, No pulsatile mass MS: All extremities with Normal range of motion, no gross deformity, no swelling , no pulse deficits MS Back: Atraumatic, No CVA tenderness Skin: Atraumatic, Color NL, No rash, Warm, Dry, Intact, Turgor NL, No swelling Neurologic: Oriented X3, Speech NL, No motor deficits, No sensory deficits Psychiatric: Affect NL, Mood NL Interpretation Diagnostics Lab Results Interpretation Results Laboratory Tests 03/10/23 1224: [Embedded Image Not Available] Laboratory Tests: 03/10 1224 Chemistry Sodium (133 - 144 mmol/L) 138.0 Potassium (3.5 - 5.1 mmol/L) 4.0 Chloride (95 - 105 mmol/L) 107 H Carbon Dioxide (21 - 32 mmol/L) 28 Anion Gap (4.0 - 15.0 GAP calc) 3.0 L BUN (7 - 18 MG/DL) 14 Creatinine (0.55 - 1.30 MG/DL) 1.00 Glomerular Filtr Rate (>60 estGFR) 111 Glucose (70 - 110 MG/DL) 108 Calcium (8.5 - 10.1 MG/DL) 9.5 Total Bilirubin (0.00 - 1.00 MG/DL) 0.61 Direct Bilirubin (0.00 - 0.30 MG/DL) 0.14 Indirect Bilirubin (0.2 - 1.3 MG/DL) 0.47 AST (15 - 37 Unit/L) 11 L ALT (12 - 78 Unit/L) 30 Total Alk Phosphatase (45 - 117 Unit/L) 64 Total Protein (6.4 - 8.2 G/DL) 7.9 Albumin (3.4 - 5.0 G/DL) 4.3 Albumin/Globulin Ratio (1.2 - 2.2 RATIO) 1.2 Specimen Appearance (1 NORMAL Index/DL) 1 NORMAL <2 MG Specimen Hemolysis (1 NORMAL Index/DL) 1 NORMAL <10 MG Hematology WBC (4.1 - 12.1 K/mm3) 8.6 RBC (3.8 - 5.5 M/mm3) 5.22 Hgb (10.6 - 15.8 G/DL) 14.9 Hct (31.8 - 47.4 %) 46.1 MCV (80.1 - 101.1 fL) 88.3 MCH (25.3 - 35.3 pg) 28.5 MCHC (32.7 - 35.1 G/DL) 32.3 L RDW (12.2 - 16.4 %) 12.6 Plt Count (155 - 337 K/mm3) 326 MPV (7.6 - 10.4 fL) 10.0 Gran % (37.8 - 82.6 %) 66.4 Lymph % (Auto) (14.1 - 45.4 %) 18.0 [place] % (Auto) (2.5 - 11.7 %) 12.5 H Eos % (Auto) (0.0 - 6.2 %) 2.3 Baso % (Auto) (0.0 - 2.6 %) 0.5 Gran # (2.0 - 13.7 k/mm3) 5.73 Lymph # (Auto) (0.6 - 3.8 K/mm3) 1.55 [place] # (Auto) (0.11 - 0.59 K/mm3) 1.08 H Eos # (Auto) (0.0 - 0.4 K/mm3) 0.20 Baso # (Auto) (0.0 - 0.1 K/mm3) 0.04 Immature Gran % (0.0 - 2.0 %) 0.3 Nucleated RBC % (0.0 - 1.0 /100WBC%) 0.0 Nucleated RBCs # (0.00 - 0.05 K/mm3) 0.00 Urines Urine Color (YELLOW DESCRIPT) LIGHT-YELLOW Urine Appearance (CLEAR DESCRIPT) CLEAR Urine pH (4.6 - 8.0 pH UNITS) 5.5 Ur Specific [place] (1.001 - 1.035 SG) 1.027 Urine Protein (<30 (1+) mg/dL) 10 (TRACE) H Urine Glucose (UA) (0 (NORMAL) mg/dL) NORMAL (0) Urine Ketones ((NEG) 0 mg/dL) NEGATIVE (0) Urine Blood (0 (NEG) mg/dL) NEGATIVE (0.00) Urine Nitrite (NEG SCREEN) NEGATIVE (0) Urine Bilirubin ((NEG) 0 mg/dL) NEGATIVE (0.0) Urine Urobilinogen (<2.0 (1+) mg/Dl) NORMAL (0) Ur Leukocyte Esterase ((NEG) 0 Leuk/mcL) NEGATIVE (0) Urine RBC (0 - 3 #RBC/HPF) 0-3 Urine WBC (0 - 3 #WBC/HPF) 0-3 Urine Bacteria (NONE - FEW /HPF) TRACE >0 Urine Mucus (NONE /LPF) RARE Recent Impressions: CAT SCAN - CT ABD PELVIS W/CONT 03/10 1415 Report Impression - Status: SIGNED Entered: 03/10/2023 1439 IMPRESSION: Possible gallstones. Correlation with gallbladder ultrasound recommended. Mild hepatomegaly. Constipation. Impression By: [email or web address] - Sandra Carmona MD Re-Evaluation MDM Free Text MDM Notes Free Text MDM Notes Number and complexity of problems [] Differential diagnosis considered but not limited to: Postoperative abdominal pain, intra-abdominal abscess, nonspecific abdominal pain MDM data External documents reviewed [] My EKG interpretation: [] My CT interpretation: CT abdomen pelvis with no acute findings, gallstones noted , constipation noted My x-ray interpretation: [] Labs reviewed by me and are significant for: CBC unremarkable, chemistry unremarkable, urinalysis unremarkable Decision rules/scores evaluated: [] Discussed with: [] Consider admission for: [] Treatment and disposition: Patient evaluated for abdominal pain, has nontender the right upper quadrant, no concern for cholecystitis,, plan for outpatient treatment for constipation ED course: Patient is well-appearing, nontoxic, tolerating p.o. Discussed lab findings, CT findings, treatment plan, follow-up recommendations as well as return precautions. Patient verbalized understanding and agrees with plan. Shared decision making: Utilized for treatment plan ED Course Medication(s) Ordered Medication(s) Ordered: Diagnostic Agents Sig/Evelia Start time Last Medication Dose Route Stop Time Status Admin Iopamidol 75 ML .STK-MED ONE 03/10 1425 DC 03/10 IV 03/10 1426 1425 Patient Discharge Departure Vital Signs/Condition Vital Signs First Documented: Result Date Time Pulse Ox 98 03/10 1208 B/P 135/84 03/10 1208 B/P Mean 101 03/10 1208 O2 Delivery Room air 03/10 1208 Temp 36.9 03/10 1208 Pulse 69 03/10 1208 Resp 18 03/10 1208 Last Documented: Result Date Time Pulse Ox 99 03/10 1545 B/P 145/78 03/10 1545 B/P Mean 100 03/10 1545 O2 Delivery Room air 03/10 1545 Temp 36.8 03/10 1545 Pulse 64 03/10 1545 Resp 18 03/10 1545 All vital signs available at the time of this entry have been reviewed. Condition Stable Clinical Impression Clinical Impression Primary Impression: Abdominal pain Disposition Decision Discharge )( Discharged to Home Yes )( Time 1538 )( Date 03/10/23 Discharge/Care Plan Counseled Regarding Diagnosis, Lab results, Imaging studies, Prescriptions, Need for follow-up, When to return to ED (Auto) Prescriptions Current Visit Scripts DICYCLOMINE (BENTYL) 20 MG PO QID DICYCLOMINE (BENTYL) 20 MG PO QID #20 TABS POLYETHYLENE GLYCOL 3350 (MIRALAX) 17 GM PO ASDIR POLYETHYLENE GLYCOL 3350 (MIRALAX) 17 GM PO ASDIR #30 PACKET Take as per label instructions. Patient Instructions ED Constipation (Adult) Additional Instructions Rest. Drink plenty of fluids. Medication as prescribed. Take Tylenol or Motrin per bottle instructions as needed for pain. Follow-up with primary care provider in 2 to 3 days. Return to ER for any worsening or concerning symptoms. Discharge Note I have spoken with the patient and/or caregivers. I have explained the patient's condition, diagnoses and treatment plan based on the information available to me at this time. I have answered the patient's and/or caregiver's questions and addressed any concerns. The patient and/or caregivers have as good an understanding of the patient's diagnosis, condition and treatment plan as can be expected at this point. The vital signs have been stable. The patient's condition is stable and appropriate for discharge from the emergency department. The patient will pursue further outpatient evaluation with the primary care physician or other designated or consulting physician as outlined in the discharge instructions. The patient and/or caregivers are agreeable to this plan of care and follow-up instructions have been explained in detail. The patient and/or caregivers have received these instructions in written format and have expressed an understanding of the discharge instructions. The patient and/or caregivers are aware that any significant change in condition or worsening of symptoms should prompt an immediate return to this or the closest emergency department or a call to 911. Rene Salazar 03/17/23 1626: Patient Discharge Departure Discharge/Care Plan Referrals Resource Referral: [facility] Address: [address] [place] [address] [place] [address] Supervising Physician Note MidLv Saw Pt Alone I have reviewed the PA/EXTERNAL RELATIONS DIRECTOR's note and plan of care. I was available for consultation as needed at all times during the patient's visit in the emergency department. I agree with the clinical impression, plan and disposition. at 1712 at 1627 RPT #:[id number] END OF [id number] 12:11:00 [facility] ([facility]) EMERGENCY PROVIDER REPORT REPORT#:[id number] REPORT STATUS: Signed DATE:03/10/23 TIME: 1211 PATIENT: GIRMA GIBSON UNIT #: [id number] ROOM/BED: AGE: 18 SEX: M PCP PHYS: No Primary or Family Physician SERVICE AUTHOR: William Oates * ALL edits or amendments must be made on the electronic/computer document * Provider in Triage - Adult Provider in Triage Initial Greet Date/Time 03/10/23 1147 Greet Note I have greeted and performed a focused rapid initial assessment of this patient. A comprehensive ED assessment and evaluation of the patient, analysis of all test results, and completion of the medical decision-making process will be conducted by additional ED providers. Progress Patient is a 18-year-old male presents with lower abdominal pain. MSE Not Complete The medical screening exam is not complete. Further evaluation and/or treatment is required. The patient will be re-directed to the emergency department. PMH-Provider in Triage Stated Complaint PAIN AT OLD SURGICAL SITE - APPENDECTOMY Allergies Coded Allergies: No Known Allergies (03/10/23) at 1520 [facility] #:[id number] END OF [id number] 23:54:00 Discharge Instructions 2 Discharge Diagnosis Finger Sprain Important Information Consult your physician or return to the Emergency Department immediately if worse, if not better asexpected, or if any problems arise. Follow Up Care Yes Important Information Please understand that you have received care only on an emergency basis. If your condition does not improve, you should call your personal physician for follow-up care. If you do not have a physician, you may call the referred physician listed. If you have questions about your care or these discharge instructions, you may call the Emergency Department. Please take your discharge paperwork with you to any follow-up appointments. Follow-Up With: Primary Care Physician Activity Level As tolerated, unrestricted Diet Regular Prescriptions Given Via: N/A Patient Teaching Patient education provided Pain Control Activities Risk factors for pressure ulcer development Preventative measures to decrease skin breakdown Cast/Traction [facility] (LUF/SIGIFREDO/SA)
--- NOTE | 2025-08-12 16:06 | RAD REPORT ---
EXAM: Soft Tissue Neck W/Contr INDICATION: left tonsillar swelling; h/o abscess TECHNIQUE: Helical CT examination of the neck with IV contrast. Sagittal and coronal reformations wer e generated. This exam was performed according to our departmental dose-optimization program, which includes automated exposure control, adjustment of the mA and/or kV according to patient size and/or use of iterative reconstruction technique. COMPARISON: No prior exams FINDINGS: Aerodigestive Tract Structures: 11 mm x 10 mm fluid collection at the left parapharyngeal soft tissue s consistent with a peritonsillar abscess. Tonsillar hypertrophy. Airway is sufficiently patent. Lymph Nodes: No pathologic appearing cervical lymph nodes. Parotid Glands: Normal Submandibular Glands: Normal Thyroid Gland: Normal Included Intracranial Structures: Normal Included Orbits: Normal Paranasal Sinuses: Predominantly clear Tympanomastoid Cavities: Normal Vascular Structures: Normal Osseous Structures: No acute osseous abnormality. Included Lung Apices: Normal IMPRESSION: Left-sided peritonsillar fluid collection measuring approximately 1.1 cm is slightly smaller compared with 10/29/2024. The sterility of the collection is indeterminate. Widely patent airway.
[2025-08-12 16:11] LABS: Absolute Lymphocytes (CBC) 1.7 K/uL (0.7-4.9); Hematocrit 39.1 % (39.6-49.0); Hemoglobin 13.1 g/dL (13.6-17.9); MCH 29.3 pg (27.0-35.0); MCHC 33.6 g/dL (32.0-36.0); MCV 87.3 fL (80-100); MPV 8.0 fL (7.6-11.3); Nucleated RBC Absolute Count 0.0 (0-0); Nucleated Red Blood Cells % 0.0 % (0-0); RBC Red Blood Cell Count 4.47 M/uL (4.33-5.43); White Blood Count 11.60 thou/uL (4.3-10.9)
[2025-08-12 16:13] LABS: Influenza A Ag Negative; Influenza B Ag Negative; SARS-CoV-2 Antigen Rapid Res Negative (Negative)
[2025-08-12] MEDS ORDERED: NA CHLORIDE 0.9% 100 ML ONE (16:22)
[2025-08-12] MEDS ORDERED: AMPICILLIN/SULBACTAM 3GM/VIAL ONE (16:22)
[2025-08-12 16:28] LABS: ALT/SGPT 20 U/L (16-61); Albumin 3.8 g/dL (3.4-5.0); Albumin/Globulin Ratio 1.2 (1.1-1.8); Alkaline Phosphatase 57 U/L (45-117); Anion Gap 5.7 mEq/L (5.0-15.0); BUN Blood Urea Nitrogen 15 mg/dL (7-18); Globulin 3.2 g/dL (2.3-3.5); Glucose Level 80 mg/dL (74-106); Potassium 3.7 mEq/L (3.5-5.1)
[2025-08-12 16:32] LABS: AST/SGOT < 10 U/L (15-37)
--- NOTE | 2025-08-12 16:33 | ER ---
Nurse's Notes [facility] Name: Matias Chavez Age: 20 yrs Sex: Male : 2005 Arrival Date: 08/12/2025 Time: 15:07 Bed 5 Private MD: Diagnosis: Peritonsillar abscess Presentation: 08/12 15:18 Chief complaint: Patient states: he has been having left sided throat swelling \T\ pain ap3 that radiates into his left ear for approx 2 days. patient currently rates his pain as a 9/10 on the pain scale. Coronavirus screen: Client presents with at least one sign or symptom that may indicate coronavirus-19. Ebola Screen: No symptoms or risks identified at this time. Initial Sepsis Screen: Does the patient meet any 2 criteria? No. Patient's initial sepsis screen is negative. Does the patient have a suspected source of infection? No. Patient's initial sepsis screen is negative. Risk Assessment: Do you want to hurt yourself or someone else? Patient reports no desire to harm self or others. Onset of symptoms was August 10, 2025. Care prior to arrival: None. 15:18 Method Of Arrival: Ambulatory ap3 15:18 Acuity: ELIZABETH 3 ap3 Triage Assessment: 15:21 General: Appears in no apparent distress. Behavior is calm, cooperative, appropriate ap3 for age. Pain: Complains of pain in left ear and neck, left side of throat. EENT: Reports pain in left ear and left jaw when swallowing. Neuro: Level of Consciousness is awake, alert, obeys commands, Oriented to person, place, time, situation, Appropriate for age Gait is steady, Speech is normal. Cardiovascular: Patient's skin is warm and dry. Respiratory: Airway is patent Respiratory effort is even, unlabored, Respiratory pattern is regular, symmetrical. Historical: - Allergies: 15:20 No Known Allergies; ap3 - Home Meds: 15:20 None [Active]; ap3 - PMHx: 15:20 None; ap3 - PSHx: 15:20 Appendectomy; ap3 - Immunization history:: Adult Immunizations unknown. - Infectious Disease History:: Denies. - Social history:: Smoking status: Reported history of juuling and/or vaping. Screenin:22 Abuse screen: Denies threats or abuse. Nutritional screening: No deficits noted. ap3 Tuberculosis screening: No symptoms or risk factors identified. 15:30 [facility] ED Fall Risk Assessment (Adult) History of falling in the last 3 months, cf3 including since admission No falls in past 3 months (0 pts) Confusion or Disorientation No (0 pts) Intoxicated or Sedated No (0 pts) Impaired Gait No (0 pts) Mobility Assist Device Used No (0 pt) Altered Elimination No (0 pt) Score/Fall Risk Level 0 - 2 = Low Risk Oriented to surroundings, Maintained a safe environment, Educated pt \T\ family on fall prevention, incl call for assistance when getting out of bed, Assessed \T\ reinforced patient's understanding of fall precautions. Assessment: 15:22 EENT: Throat has enlarged tonsils on left. ap3 15:47 General: Appears in no apparent distress. Behavior is calm, cooperative. Pain: cf3 Complains of pain in left aspect of posterior pharynx Pain currently is 9 out of 10 on a pain scale. at worst was 10 out of 10 on a pain scale. Neuro: Jain Agitation-Sedation Scale (RASS): 0 - Alert and Calm Level of Consciousness is awake, alert, obeys commands, Oriented to person, place, time, situation. Respiratory: Airway is patent Respiratory effort is even, unlabored, Respiratory pattern is regular, symmetrical, Breath sounds are clear bilaterally. Vital Signs: 15:18 BP 133 / 75; Pulse 76; Resp 17; Temp 98.5(O); Pulse Ox 97% on R/A; Weight 83.91 kg; ap3 Height 6 ft. 0 in. ; Pain 9/10; 15:30 BP 119 / 70; Pulse 77; Resp 16; Pulse Ox 99% on R/A; cf3 16:30 BP 123 / 67; Pulse 74; Resp 16; Pulse Ox 99% on R/A; cf3 15:18 Body Mass Index 25.09 (83.91 kg, 182.88 cm) ap3 15:18 Pain Scale: Adult ap3 ED Course: 15:09 Patient arrived in ED. mr 15:10 Jose Malhotra MD is Attending Physician. sp3 15:20 Triage completed. ap3 15:22 Arm band placed on right wrist. ap3 15:27 Earl An, YENNY is Primary Nurse. cf3 15:30 Patient has correct armband on for positive identification. Bed in low position. Call cf3 light in reach. Side rails up X 1. Client placed on continuous cardiac and pulse oximetry monitoring. NIBP monitoring applied. Door closed. Noise minimized. 15:30 No provider procedures requiring assistance completed. Inserted saline lock: 20 gauge cf3 in right antecubital area, using aseptic technique. 15:49 CT Soft Tissue Neck W/contr In Process Unspecified. EDPR 16:32 Spring La MD is Referral Physician. sp3 17:06 IV discontinued, intact, bleeding controlled, No redness/swelling at site. Pressure cf3 dressing applied. Administered Medications: 16:28 Drug: Ampicillin-Sulbactam Sodium IVPB 3 grams IVPB once over 30 mins; (mix in 100 mL cf3 NS) Route: IVPB; Infused Over: 30 mins; Site: right antecubital; 17:05 Follow up: Urine output 1 ml; Response: No adverse reaction; IV Status: Completed cf3 infusion; IV Intake: 100ml Medication: 15:30 VIS not applicable for this client. cf3 Intake: 17:05 IV: 100ml; Total: 100ml. cf3 Output: 17:05 Urine: 1ml; Total: 1ml. cf3 Outcome: 16:32 Discharge ordered by . sp3 17:05 Discharged to home ambulatory, cf3 17:05 Condition: unchanged 17:05 Discharge instructions given to patient, Instructed on discharge instructions, follow up and referral plans. Demonstrated understanding of instructions, follow-up care, medications, Prescriptions given X 1, 17:06 Patient left the ED. cf3 Signatures: Dispatcher [employer] [facility] ManzanoWendy simmons, Reg Reg Amber Ariza, RN RN ap3 Jose Malhotra MD MD sp3 Earl An RN RN cf3
--- NOTE | 2025-08-12 16:33 | EDPHYS ---
Physician Documentation [facility] Name: Matias Chavez Age: 20 yrs Sex: Male : 2005 Arrival Date: 08/12/2025 Time: 15:07 Bed 5 Private MD: ED Physician Jose Malhotra HPI: 08/12 15:25 This 20 yrs old Male presents to ER via Ambulatory with complaints of Sore sp3 Throat. 15:25 20-year-old male with history of peritonsillar abscess now presents with left tonsillar sp3 swelling and pain for the last 2 to 3 days. He denies any fever. ROS negative for headache, lymph node swelling, chest pain, cough, shortness of breath or any other signs or symptoms on ROS at this time.. Historical: - Allergies: 15:20 No Known Allergies; ap3 - Home Meds: 15:20 None [Active]; ap3 - PMHx: 15:20 None; ap3 - PSHx: 15:20 Appendectomy; ap3 - Immunization history:: Adult Immunizations unknown. - Infectious Disease History:: Denies. - Social history:: Smoking status: Reported history of juuling and/or vaping. ROS: 15:26 Constitutional: Negative for fever, chills, and weight loss, Eyes: Negative for injury, sp3 pain, redness, and discharge, Cardiovascular: Negative for chest pain, palpitations, and edema, Respiratory: Negative for shortness of breath, cough, wheezing, and pleuritic chest pain, Abdomen/GI: Negative for abdominal pain, nausea, vomiting, diarrhea, and constipation, Back: Negative for injury and pain, MS/Extremity: Negative for injury and deformity, Skin: Negative for injury, rash, and discoloration, Neuro: Negative for headache, weakness, numbness, tingling, and seizure, Psych: Negative for depression, anxiety, suicide ideation, homicidal ideation, and hallucinations, Allergy/Immunology: Negative for hives, rash, and allergies, Endocrine: Negative for neck swelling, polydipsia, polyuria, polyphagia, and marked weight changes, Hematologic/Lymphatic: Negative for swollen nodes, abnormal bleeding, and unusual bruising, 15:26 All other systems are negative, Exam: 15:26 Constitutional: This is a well developed, well nourished patient who is awake, alert, sp3 and in no acute distress. Head/Face: Normocephalic, atraumatic. Eyes: Pupils equal round and reactive to light, extra-ocular motions intact. Lids and lashes normal. Conjunctiva and sclera are non-icteric and not injected. Cornea within normal limits. Periorbital areas with no swelling, redness, or edema. Neck: Trachea midline, no thyromegaly or masses palpated, and no cervical lymphadenopathy. Supple, full range of motion without nuchal rigidity, or vertebral point tenderness. No Meningismus. Chest/axilla: Normal chest wall appearance and motion. Nontender with no deformity. No lesions are appreciated. Cardiovascular: Regular rate and rhythm with a normal S1 and S2. No gallops, murmurs, or rubs. Normal PMI, no JVD. No pulse deficits. Respiratory: Lungs have equal breath sounds bilaterally, clear to auscultation and percussion. No rales, rhonchi or wheezes noted. No increased work of breathing, no retractions or nasal flaring. Abdomen/GI: Soft, non-tender, with normal bowel sounds. No distension or tympany. No guarding or rebound. No evidence of tenderness throughout. Back: No spinal tenderness. No costovertebral tenderness. Full range of motion. Skin: Warm, dry with normal turgor. Normal color with no rashes, no lesions, and no evidence of cellulitis. MS/ Extremity: Pulses equal, no cyanosis. Neurovascular intact. Full, normal range of motion. 15:26 ENT: Left-sided tonsillar swelling and concern for peritonsillar abscess.. Vital Signs: 15:18 BP 133 / 75; Pulse 76; Resp 17; Temp 98.5(O); Pulse Ox 97% on R/A; Weight 83.91 kg; ap3 Height 6 ft. 0 in. ; Pain 9/10; 15:30 BP 119 / 70; Pulse 77; Resp 16; Pulse Ox 99% on R/A; cf3 16:30 BP 123 / 67; Pulse 74; Resp 16; Pulse Ox 99% on R/A; cf3 15:18 Body Mass Index 25.09 (83.91 kg, 182.88 cm) ap3 15:18 Pain Scale: Adult ap3 MDM: 15:13 Medical Screening Exam initiated sp3 15:26 Data reviewed: vital signs, old medical records, lab test result(s), radiologic sp3 studies. ED course: Two 1-year-old male with left-sided tonsillitis pain and swelling. Differential diagnosis includes pharyngitis, tonsillitis, peritonsillar abscess. General labs, swabs and CT scan of the neck soft tissue with IV contrast pending. Disposition pending workup patient course.. 16:22 ED course: CT demonstrates 1 cm abscess slightly smaller than his prior one. Unasyn has sp3 been started. I offered him transfer to [facility] since we do not have ENT for drainage. He elects to drive himself up there. I told him that we would need to DC his IV and he will need to check back into the ER to which he acknowledged. We will give patient all CT and lab results. This will be an AGAINST MEDICAL ADVICE however we documented as an informed discharge.. 08/12 15:19 Order name: CBC with Diff; Complete Time: 16:15 sp3 08/12 15:19 Order name: CMP sp3 08/12 15:19 Order name: Group A Streptococcus Rapid; Complete Time: 16:15 sp3 08/12 15:19 Order name: COVID-19 Ag + Flu A+B Ag; Complete Time: 16:15 sp3 08/12 16:07 Order name: Throat Culture EDFL 08/12 15:19 Order name: CT Soft Tissue Neck W/contr; Complete Time: 16:15 sp3 08/12 15:19 Order name: IV Saline Lock; Complete Time: 15:46 sp3 08/12 15:19 Order name: Labs collected and sent; Complete Time: 15:46 sp3 08/12 15:19 Order name: NPO; Complete Time: 15:27 sp3 08/12 15:59 Order name: Labs - recollect needed: recollect lav and green both hemolyzed per lab; eb Complete Time: 16:11 Administered Medications: 16:28 Drug: Ampicillin-Sulbactam Sodium IVPB 3 grams IVPB once over 30 mins; (mix in 100 mL cf3 NS) Route: IVPB; Infused Over: 30 mins; Site: right antecubital; 17:05 Follow up: Urine output 1 ml; Response: No adverse reaction; IV Status: Completed cf3 infusion; IV Intake: 100ml Disposition Summary: 08/12/25 16:32 Discharge Ordered Condition: Stable sp3 Diagnosis - Peritonsillar abscess sp3 Followup: sp3 - With: Spring La MD - When: Upon discharge from the Emergency Department - Reason: Recheck today's complaints Discharge Instructions: - Discharge Summary Sheet sp3 - Peritonsillar Abscess sp3 Forms: - Medication Reconciliation Form sp3 - Antibiotic Education sp3 - Prescription Opioid Use sp3 - Patient Portal Instructions sp3 - Leadership Thank You Letter sp3 - Work release form cf3 Prescriptions: - Augmentin 875-125 mg Oral Tablet - take 1 tablet ORAL route every 12 hours for 10 days; 20 tablet; Refills: 0, sp3 Product Selection Permitted Signatures: Dispatcher [employer] EDAmber Godwin, RN RN ap3 Leydi Elizabeth Setul, MD MD sp3 Earl An RN RN cf3 Corrections: (The following items were deleted from the chart) 15:19 15:19 CBC+H.LAB.BRZ ordered. EDMS EDMS 15:19 15:19 COMPREHENSIVE METABOLIC PANEL+C.LAB.BRZ ordered. EDMS EDMS 15:19 15:19 Soft Tissue Neck W/Contr+CT.RAD.BRZ ordered. EDMS EDMS
[2025-08-12 17:23] VITALS: TEMP 98.5
[2025-08-12 17:25] VITALS: BP 119/70; O2SAT 99
== END 2025-08-12 17:06 | disposition home or self-care (01) ==
LOC: ER 15:07
DX: J36 Peritonsillar abscess (principal); Z11.52 Encounter for screening for COVID-19
CPT/HCPCS: 36415; 70491; 80053; 85025; 87070; 87428; 96365; 99284; J0295; Q9967